=== PATIENT | female | born 1965 | race Caucasian/White ===

== ENCOUNTER 2021-04-29 00:54 | Emergency (ER) | payer OTHER ==
[~2021-04-29] VITALS: Ht 167.6 cm; Wt 95.3 kg
[2021-04-29] MEDS ORDERED: NITROSTAT SL STA (01:04)
[2021-04-29 01:07] VITALS: BP 159/104
--- NOTE | 2021-04-29 01:09 | PCM.EKG ---
[facility] Test Date: 2021-04-29 Test Time: 00:57:02 Pat Name: MC KUMAR Department: Room: Gender: F Central Supply Tech: ED : 1965 Requested By: TARAN BUI Order Number: [id number] Reading MD: Measurements Intervals [place] Rate: 96 P: 79 CO: 172 QRS: 67 QRSD: 91 T: 52 QT: 350 QTc: 443 Interpretive Statements Sinus rhythm No previous ECG available for comparison Please click the below link to view image of tracing.
[2021-04-29 01:15] LABS: BASOPHIL % 0.5 % (0.0-0.2); EOSINOPHIL # 0.1 10^3/uL (0.0-0.2); EOSINOPHIL % 2.1 % (0.0-5.0); LYMPHOCYTES # 2.38 10^3/uL1 (1.0-4.8); LYMPHOCYTES % 36.2 % (24.0-44.0); MEAN CORP HGB 27.6 pg (26-34); MONOCYTES # 0.5 10^3/uL (0.3-0.8); MONOCYTES % 8.2 % (5.0-12.0); NEUTROPHIL # 3.5 10^3/uL (1.8-7.7); PLATELET COUNT 241 10^3/uL (150-400); RED CELL DISTRIBUTION WIDTH 14.4 % (11.5-14.5)
[2021-04-29] MEDS ORDERED: NITROSTAT SL ONE (01:17)
[2021-04-29] MEDS ORDERED: ASPIRIN ONE (01:17)
[2021-04-29] MEDS ORDERED: ASPIRIN PO PRN (01:30)
[2021-04-29 01:33] LABS: ALANINE AMINOTRANSFERASE(ML) 60 U/L (12-78); ALKALINE PHOSPHATASE 122 U/L (50-136); ASPARTATE AMINO TRANSFERASE 32 U/L (0-35); CARBON DIOXIDE 28.6 mmol/L (20.0-32); GLUCOSE 122 mg/dL (70-110)
--- NOTE | 2021-04-29 01:40 | DIREP ---
PROCEDURE:CHEST 2 VIEWS COMPARISON:[facility], , CHEST 1 VIEW, 08/11/2014, 10:13 AM. INDICATIONS:chest pain FINDINGS: LUNGS/PLEURA:No significant pulmonary parenchymal abnormalities. No effusion or pneumothorax. VASCULATURE:Normal. Unremarkable pulmonary vasculature. CARDIAC:Normal. No cardiac silhouette abnormality or cardiomegaly. MEDIASTINUM:Normal. No visible mass or adenopathy. BONES:Stable mild degenerative changes involving the acromioclavicular joints and thoracic spine. No acute abnormality. OTHER:Monitor leads overlie the chest. CONCLUSION: No acute cardiopulmonary abnormality. There is no significant change as compared with the previous examination. Dictated by: Jesse Martinez MD on 04/29/2021 at 01:38 AM
[2021-04-29 01:47] VITALS: BP 102/59
--- NOTE | 2021-04-29 02:36 | ER.PDOC ---
General Chief Complaint: Chest Pain-Cardiac Nature Stated Complaint: POSS HEART ATTACK Time seen by MD: 01:07 Source: patient Exam Limitations: no limitations History of Present Illness Initial Comments Patient is a 56-year-old woman who presents the emergency department with chief complaint of left chest pain that began approximately an hour prior to arri josé antonio.Patient states she was awoken from sleep with pain in her left chest that she states is sharp, constant, nonradiating. Patient states she had a heart attack before and the pain feels similar to her previous heart attack. Patient states she got short of breath, nauseated, mild diaphoresis. Patient denies any vomiting, nasal congestion, sore throat, cough, fever. Patient denies any diarrhea, black or bloody stools.Patient states she did not Take any medication for the pain at home. Patient states she sees Dr. Medina who is her engineering geologist. Patient states she had a stress test about 2 years ago that was negative. Patient States that she has never had cardiac catheterization or stents. She also states that her blood tests are always negative.Patient was quite anxious on arrival in the emergency department. Timing/Duration: 1 hour Severity/Quality: severe, sharp Radiation: no radiation Activities at Onset: sleep Prior CP/Workup: Cardiac Cath (none), Stress Test Modifying Factors: other (none) Nitro Today/Relief: No Nitro Taken Today Aspirin Today: No Aspirin Today Associated Symptoms: cough (none), diaphoresis, nausea/vomiting, shortness of breath Prior symptoms/Treatment: Similar symptoms previous (Commissions Analyst is Dr. Medina) Allergies: Coded Allergies: Penicillins (Unverified Allergy, Severe, 08/11/14) Home Meds No Active Prescriptions or Reported Meds Past Medical History Medical History: heart attack, hypertension Surgical History: no surgical history Family History Significant Family History: heart disease (no) Social History Smoking: non-smoker Alcohol Use: none Drug Use: none Constitutional: denies fever EENTM: denies nose congestion, denies throat pain Respiratory: denies cough; shortness of breath Cardiovascular: chest pain Gastrointestinal: denies abdominal pain, denies diarrhea; nausea; denies vomiting Genitourinary: denies dysuria, denies frequency, denies hematuria Musculoskeletal: denies back pain, denies neck pain Skin: denies rash Psychiatric/Neurological: anxiety Hematologic/Lymphatic: denies easy bleeding All Other Systems: Reviewed and Negative Physical Exam General Appearance: No Apparent Distress, WD/WN, Anxious HEENT: PERRL/EOMI, Normal ENT Inspection, Pharynx Normal Neck: Non-Tender, Full Range of Motion, Supple, Normal Inspection Respiratory: chest non-tender, lungs clear, normal breath sounds, no respiratory distress, no accessory muscle use Cardiovascular: Normal Peripheral Pulses, Regular Rate, Rhythm, No Edema, No Gallop, No Murmur Gastrointestinal: Normal Bowel Sounds, No Organomegaly, Non Tender, Soft Rectal: Normal Exam Extremities: Normal Range of Motion, Non-Tender, Normal Inspection, No Pedal Edema, No Calf Tenderness, Normal Capillary Refill Neurologic/Psychiatric: customer service assistant II-XII NML as Tested, No Motor/Sensory Deficits, Alert, Normal Mood/Affect, Oriented x 3 Skin: Normal Color, Warm/Dry Lymphatic: No Adenopathy Results/Orders Results/Orders Orders - TARAN BUI MD Cbc With Auto Diff (04/29/21 01:04) Comprehensive Metabolic Panel (04/29/21 01:04) Troponin I (04/29/21 01:04) Ekg-Routine (04/29/21 01:04) Aspirin (Aspirin) (04/29/21 01:30) Nitroglycerin (Nitrostat) (04/29/21 01:04) Xr Chest 2v (04/29/21 01:04) Saline Lock (04/29/21 01:04) D-Dimer (04/29/21 01:04) Nitroglycerin (Nitrostat) (04/29/21 01:17) Aspirin (Aspirin) (04/29/21 01:17) Troponin I (04/29/21 02:00) Vital Signs Date Time Temp Pulse Resp B/P (MAP) Pulse Ox O2 Delivery O2 Flow Rate FiO2 04/29/21 01:47 97.8 83 18 102/59 (73) 93 Room Air 04/29/21 01:07 97.9 102 22 98 04/29/21 01:07 97.9 102 22 98 Administered Medications Medications (Trade) Dose Ordered Sig/Adarsh Route PRN Reason Start Time Stop Time Status Last Admin Dose Admin Aspirin (Aspirin) 325 mg DAILY PRN PO CHEST PAIN 04/29/21 01:30 05/29/21 01:29 04/29/21 01:22 325 MG Nitroglycerin (Nitrostat) 0.4 mg Q5MIN STAT SL 04/29/21 01:04 04/29/21 01:10 DC 04/29/21 01:21 0.4 MG Laboratory Tests Test 04/29/21 00:58 White Blood Count 6.6 10^3/uL (4.5-11.0) Red Blood Count 5.19 10^6/uL (4.00-5.20) Hemoglobin 14.3 g/dL (12.0-15.0) Hematocrit 45.3 % (36.0-46.0) Mean Corpuscular Volume 87.3 fL (78-100) Mean Corpuscular Hemoglobin 27.6 pg (26-34) Mean Corpuscular Hemoglobin Concent 31.6 g/dL (33-36.5) L Red Cell Distribution Width 14.4 % (11.5-14.5) Platelet Count 241 10^3/uL (150-400) Mean Platelet Volume 10.7 fL (7.8-11.0) Neutrophils (%) (Auto) 53.0 % (41.0-85.0) Lymphocytes (%) (Auto) 36.2 % (24.0-44.0) Monocytes (%) (Auto) 8.2 % (5.0-12.0) Neutrophils # (Auto) 3.5 10^3/uL (1.8-7.7) Lymphocytes # (Auto) 2.38 10^3/uL1 (1.0-4.8) Monocytes # (Auto) 0.5 10^3/uL (0.3-0.8) Absolute Immature Granulocyte (auto 0.02 10^3 u/L (0-2) Absolute Eosinophils (auto) 0.1 10^3/uL (0.0-0.2) Immature Granulocytes % 0.30 % (0.00-0.50) Eosinophils % 2.1 % (0.0-5.0) Basophils % 0.5 % (0.0-0.2) H Basophils # 0.0 10^3/uL (0.0-0.1) D-Dimer 0.42 mg/L (0.19-0.49) Sodium Level 144 mmol/L (132-145) Potassium Level 4.0 mmol/L (3.6-5.2) Chloride Level 104.0 mmol/L (96-109) Carbon Dioxide Level 28.6 mmol/L (20.0-32) Anion Gap 15.4 Blood Urea Nitrogen 20 mg/dL (7-18) H Creatinine 1.07 mg/dL (0.59-1.40) Estimated GFR () 64.0 (>/=60) Est GFR (CKD-EPI)(Non-Afr [place]) 52.9 (>/=60) BUN/Creatinine Ratio 18.0 Glucose Level 122 mg/dL (70-110) H Calcium Level 9.0 mg/dL (8.4-10.5) Total Bilirubin 0.5 mg/dL (0.2-1.0) Aspartate Amino Transferase (AST) 32 U/L (0-35) Alanine Aminotransferase (ALT) 60 U/L (12-78) Alkaline Phosphatase 122 U/L (50-136) Troponin I < 0.02 ng/mL (0.00-0.05) Total Protein 8.2 g/dL (6.4-8.2) Albumin 4.2 g/dL (3.4-5.0) Globulin 4.0 Albumin/Globulin Ratio 1.050 Progress Progress Patient was extremely anxious on arrival in the emergency department. Patient was given aspirin 324 mg orally and sublingual nitro with improvement in her pain. Patient is EKG shows normal sinus rhythm, normal axis, normal intervals, no acute ST changes as interpreted by me. Patient CBC and CMP were normal. Patient's test was normal. Patient's initial troponin was negative. Patient had a D-dimer that was negative. Patient's chest x-ray was read as negative.We dru a second troponin on this patient Which was also negative.Patient has chest pain of uncertain etiology. Patient originally stated that she had had history of CT but is never had elevated enzymes, negative stress tests, no history of cardiac catheterization or stent placement.Patient was extremely anxious on arrival which is now resolved along with her chest pain.Patient's heart score is 3 which puts her at low risk of acute coronary Syndrome in the next 6 weeks.Patient does not appear to have STEMI, NSTEMI, pulmonary embolism, congestive heart failure, pneumothorax, pneumonia, aortic dissection, aortic aneurysm, flail chest, necrotizing fasciitis, burn, or other serious etiology of her symptoms. Patient will be discharged home. EKG/XRAY/CT/US EKG: NSR, no ST T wave changes ER DEPART Departure Time of Disposition: 03:21 Disposition: 01 HOME / SELF CARE / HOMELESS Impression: Primary Impression: Chest pain Condition: Improved Referrals: MARGO GLORIA (PCP) PRIMARY CARE PROVIDER Additional Instructions: Thank you for your visit today and trusting us with your health care needs. Return immediately if worse chest pain, difficulty breathing, persistent vomiting, severe cough, fever. Continue current medications as prescribed. Follow-up with Dr. Medina May 01, 2021. Scripts No Active Prescriptions or Reported Meds Duration or Time Spent with Pa: 40 min Problem Qualifiers Primary Impression: Chest pain Chest pain type: unspecified Qualified Codes: R07.9 - Chest pain, unspecified TARAN BUI MD Apr 29, 2021 02:36
[2021-04-29 03:18] VITALS: BP 105/69
== END 2021-04-29 03:45 | disposition home or self-care (01) ==
LOC: ER 00:54
DX: R07.9 Chest pain, unspecified (principal); I10 Essential (primary) hypertension; I21.9 Acute myocardial infarction, unspecified; I25.2 Old myocardial infarction; Z79.82 Long term (current) use of aspirin; Z88.0 Allergy status to penicillin
CPT/HCPCS: 36415; 71046; 80053; 84484; 85025; 85379; 93005; 99285

== ENCOUNTER 2022-04-28 11:04 | Emergency (ER) | payer SELFPAY ==
[2022-04-28 11:08] VITALS: BP 149/96
[2022-04-28] MEDS ORDERED: NORCO 10MG PO STA (11:18)
--- NOTE | 2022-04-28 11:18 | ER.PDOC ---
General Chief Complaint: Extremities Stated Complaint: EXTREMITES Time seen by MD: 11:11 Source: patient Exam Limitations: no limitations History of Present Illness Initial Comments Patient presents to the emergency room complaining of right foot pain after her right foot got stuck between the metal plate of a lawnmower and a tree limb. Reported she had steel toe boot on when the incident happened. Pain is 10/10. Denies any other complaints. Recent Injury: Yes Where: home Severity: severe Relieved By: nothing Associated Symptoms: other (Small abrasion right lower leg) Allergies: Coded Allergies: Penicillins (Unverified Allergy, Severe, 08/11/14) Home Meds No Active Prescriptions or Reported Meds Past Medical History Medical History: heart attack, hypertension Surgical History: no surgical history Social History Drug Use: none Review of Systems Constitutional: denies chills, denies fever, denies malaise Respiratory: denies cough, denies shortness of breath Cardiovascular: denies chest pain, denies palpitations Gastrointestinal: denies abdominal pain, denies nausea, denies vomiting Musculoskeletal: other (Right foot pain) Skin: other (Small abrasion right lower leg) Psychiatric/Neurological: denies headache All Other Systems: Reviewed and Negative Physical Exam General Appearance: Alert, No Apparent Distress Lower Extremity: no pedal edema, tenderness (Tenderness, mild swelling with ecchymosis on the distal one third, dorsal surface of the distal one third right foot.), swelling (Tenderness, mild swelling with ecchymosis on the distal one third, dorsal surface of the distal one third right foot.) Joint Exam: joints nml, nml ROM, nml gait/weight bearing, limited ROM by pain (Right foot and right ankle due to pain) Vascular: no vascular compromise, pulses full/equal Neuro/Psych: sensation nml, motor nml, oriented x3, CN's nml as tested, mood/affect nml Skin: color nml (except for mild swelling with ecchymosis on the distal one third, dorsal surface of the distal one third right foot. Small abrasion right lower leg.), warm/dry EENT: eyes inspection nml Respiratory: no resp distress CVS: reg rate & rhythm Results/Orders Results/Orders Orders - KACY CRUZ MD Hydrocodone/Acetaminophen (F[place]is 10mg) (04/28/22 11:18) Xr Foot Rt (04/28/22 11:18) Hydrocodone/Acetaminophen (Ferris 10mg) (04/28/22 11:26) Vital Signs Date Time Temp Pulse Resp B/P (MAP) Pulse Ox O2 Delivery O2 Flow Rate FiO2 04/28/22 11:08 98.0 79 18 96 04/28/22 11:08 98.0 79 18 149/96 (113) 96 Room Air* 0 21 04/28/22 11:08 98.0 79 18 Administered Medications Medications (Trade) Dose Ordered Sig/Adrash Route PRN Reason Start Time Stop Time Status Last Admin Dose Admin Acetaminophen/ Hydrocodone Bitart (Ferris 10mg) 1 each OT STAT PO 04/28/22 11:18 04/28/22 11:23 DC 04/28/22 11:29 1 EACH EKG/XRAY/CT/US XRAY Comments: Xray right foot: Negative for acute fracures nor dislocations. ER DEPART Departure Time of Disposition: 12:12 Disposition: 01 HOME / SELF CARE / HOMELESS Impression: Primary Impression: Contusion of right foot, initial encounter Additional Impression: Right foot pain Condition: Stable Referrals: MARGO GLORIA-Cynthia (PCP) PRIMARY CARE PROVIDER Additional Instructions: Adequate pain control advised with Ibuprofen. Ambulates as tolerated. Scripts No Active Prescriptions or Reported Meds Duration or Time Spent with Pa: 10 mins Problem Qualifiers KACY CRUZ MD Apr 28, 2022 11:18
[2022-04-28] MEDS ORDERED: NORCO 10MG PO ONE (11:26)
--- NOTE | 2022-04-28 12:01 | DIREP ---
PROCEDURE:XRAY FOOT MIN 3 VWS-RT COMPARISON:None. INDICATIONS:Right foot pain FINDINGS: BONES:Normal. JOINTS:Diffuse mild osteoarthritis. SOFT TISSUES:Normal. OTHER:No additional findings. CONCLUSION:Mild osteoarthritis without fracture Dictated by: Forrest Fan DO on 04/28/2022 at 11:59 AM
== END 2022-04-28 11:51 | disposition home or self-care (01) ==
LOC: ER 11:04
DX: S90.31XA Contusion of right foot, initial encounter (principal); M79.671 Pain in right foot; I10 Essential (primary) hypertension; I25.2 Old myocardial infarction; W22.8XXA Striking against or struck by other objects, initial encounter; Y93.89 Activity, other specified; Y92.009 Unspecified place in unspecified non-institutional (private) residence as the place of occurrence of the external cause; Y99.8 Other external cause status; Z88.0 Allergy status to penicillin
CPT/HCPCS: 99283; 73630-RT